=== PATIENT | female | born 1950 | race Caucasian/White ===

== ENCOUNTER 2018-05-16 10:36 | Day surgery (SDC) | payer MEDICARE, OTHER ==
[2018-05-14 14:45] VITALS: BP 147/76
[2018-05-14 15:13] LABS: BASOPHILS # (AUTO) 0.03 x10^3/uL (0-0.1); BASOPHILS % (AUTO) 1 % (0-1); EOSINOPHILS # (AUTO) 0.06 x10^3/uL (0-0.4); EOSINOPHILS % (AUTO) 1 % (1-7); LYMPHOCYTES # (AUTO) 0.69 x10^3/uL (1-3.4); LYMPHOCYTES % (AUTO) 12 % (22-44); MD NO; MEAN CORPUSCULAR HEMOGLOBIN 20.1 pg (27.0-34.8); MEAN CORPUSCULAR HGB CONC 31.2 g/dL (32.4-35.8); MEAN CORPUSCULAR VOLUME 64.6 fL (80-100); MEAN PLATELET VOLUME 8.6 fL (7.4-10.4); MONOCYTES # (AUTO) 0.34 x10^3/uL (0.2-0.8); MONOCYTES % (AUTO) 6 % (2-9); NEUTROPHILS % (AUTO) 81 % (42-75); PLATELET COUNT 199 x10^3/uL (130-400); RED BLOOD COUNT 5.79 x10^6/uL (3.82-5.3); RED CELL DISTRIBUTION WIDTH 16.4 % (9.6-15.2)
[2018-05-14 15:23] LABS: ANION GAP 6 mmol/L (5-15); CALCIUM 8.7 mg/dL (8.5-10.1); CHLORIDE 111 mmol/L (98-107); CREATININE 1.01 mg/dL (0.55-1.02)
[2018-05-14 15:26] LABS: INTERNATIONAL NORMALIZED RATIO 1.07 (0.93-1.1); PROTHROMBIN TIME 11.3 Seconds (9.6-11.5)
[~2018-05-16] VITALS: Ht 162.6 cm; Wt 90.9 kg
[~2018-05-16 10:36] MED LIST: ALPR-475 PO; ALPR1TAB2 PO; AMIO200T42 PO; ARIP2TAB2 PO; ASPI-650 PO; AZIT500T5 PO; BUPR150T73 PO; CEFD300C37 PO; CHOL5000 PO; CLON1TAB PO; FLUO20CA19 PO; FURO-92 PO; FURO-93 PO; METH4TAB2 PO; METO-93 PO; OMEP40CA6 PO; SERT100T32 PO
[2018-05-16] MEDS ORDERED: SODIUM CHLORIDE 0.9% 1,000 ML IV SCH (11:34)
[2018-05-16] MEDS ORDERED: FENTANYL PF 100 MCG/2ML ONE (14:15)
[2018-05-16] MEDS ORDERED: MIDAZOLAM 1 MG/ML, 2ML ONE (14:15)
[2018-05-16] MEDS ORDERED: CEFAZOLIN 1,000 MG ONE ×2 (14:23→14:25)
[2018-05-16] MEDS ORDERED: LIDOCAINE 1%, 20ML ONE (14:25)
[2018-05-16] MEDS ORDERED: DEXAMETHASONE 4 MG/ML, 5ML ONE (14:35)
[2018-05-16] MEDS ORDERED: PROPOFOL 10 MG/ML, 20ML ONE (14:35)
[2018-05-16] MEDS ORDERED: ONDANSETRON 2MG/ML, 2ML ONE (14:35)
[2018-05-16] MEDS ORDERED: HOLD MEDICATION MC PRN (15:00)
[2018-05-16] MEDS ORDERED: OXYcodone 5 MG/5 ML ORAL.SOL UDC PO PRN (15:30)
[2018-05-16] MEDS ORDERED: FENTANYL PF 100 MCG/2ML IV PRN (15:30)
[2018-05-16] MEDS ORDERED: MORPHINE SULFATE 4 MG/ML, 1ML IVPush PRN (15:30)
[2018-05-16] MEDS ORDERED: PROMETHAZINE 12.5 MG SUPP PR PRN (15:30)
[2018-05-16] MEDS ORDERED: LABETALOL 5MG/ML, 20ML IV PRN (15:30)
[2018-05-16] MEDS ORDERED: ONDANSETRON ODT 8 MG PO PRN (15:30)
[2018-05-16] MEDS ORDERED: hydrALAzine 20 MG/ML, 1ML IV PRN (15:30)
[2018-05-16] MEDS ORDERED: HALOPERIDOL 5 MG/ML IV PRN (15:30)
[2018-05-16] MEDS ORDERED: DIAZEPAM 5 MG/ML, 2ML IVPush PRN (15:30)
[2018-05-16] MEDS ORDERED: MEPERIDINE/PF 25MG/0.5ML IVPush PRN (15:30)
[2018-05-16] MEDS ORDERED: ALBUTEROL SULFATE 2.5 MG/3 ML NPPB PRN (15:30)
[2018-05-16] MEDS ORDERED: ACETAMINOPHEN 325 MG TABLET PO PRN (15:30)
[2018-05-16] MEDS ORDERED: HYDROmorphone 2 MG/ML, 1ML IVPush PRN (15:30)
[2018-05-16] MEDS ORDERED: EPHEDRINE 50 MG/ML, 1ML IVPush PRN (15:30)
[2018-05-16] MEDS ORDERED: ONDANSETRON 2MG/ML, 2ML IV PRN (15:30)
[2018-05-16] MEDS ORDERED: MIDAZOLAM 1 MG/ML, 2ML IV PRN (15:30)
[2018-05-16] MEDS ORDERED: PROMETHAZINE 25 MG/ML, 1ML IV PRN (15:30)
[2018-05-16] MEDS ORDERED: ACETAMINOPHEN 650 MG/20.3 ML UDC ONE (15:59)
[2018-05-16] MEDS ORDERED: OXYcodone 5 MG/5 ML ORAL.SOL UDC ONE (16:00)
[2018-05-16] MEDS ORDERED: SODIUM CHLORIDE FLUSH 10ML SYR IVF SCH (21:00)
== END 2018-05-16 16:48 | disposition home or self-care (01) ==
LOC: CACL 10:36
PROVIDERS: ATTEND Internal Medicine Cardiovascular Disease
DX: Z45.02 Encounter for adjustment and management of automatic implantable cardiac defibrillator (principal); I42.1 Obstructive hypertrophic cardiomyopathy; I10 Essential (primary) hypertension; E78.5 Hyperlipidemia, unspecified; I47.2 Ventricular tachycardia; Z88.1 Allergy status to other antibiotic agents
CPT/HCPCS: 33263; 36415; 71046; 80048; 85025; 85610; 93005; C1721; J0690; J1100; J2250; J2405; J2704; J3010; J3490

== ENCOUNTER → 2018-06-13 | Outpatient (CLI) | payer MEDICARE, OTHER | END | disposition home or self-care (01) | LOC: CFH 12:43 → MERGE 13:00 | PROVIDERS: ATTEND Internal Medicine Cardiovascular Disease | DX: I08.0 Rheumatic disorders of both mitral and aortic valves (principal); I42.9 Cardiomyopathy, unspecified | CPT/HCPCS: 93306 ==

== ENCOUNTER → 2019-05-30 | Outpatient (CLI) | payer MEDICARE, OTHER ==
[~2019-05-30] MED LIST changes: -ALPR-475 PO; +ALPR0.5T7 PO; +AZIT500T10 PO; -AZIT500T5 PO; +OMEP40CA42 PO; -OMEP40CA6 PO
== END | disposition home or self-care (01) ==
LOC: CFH 13:01
PROVIDERS: ATTEND Family Medicine
DX: R22.1 Localized swelling, mass and lump, neck (principal)
CPT/HCPCS: 76536

== ENCOUNTER 2019-06-03 13:37 | Outpatient (CLI) | payer MEDICARE, OTHER | END 2019-06-03 23:59 | disposition home or self-care (01) | LOC: CFH 13:37 | PROVIDERS: ATTEND Internal Medicine Cardiovascular Disease | DX: I08.3 Combined rheumatic disorders of mitral, aortic and tricuspid valves (principal) | CPT/HCPCS: 93306 ==

== ENCOUNTER 2020-07-14 18:48 | Emergency (ER) | payer MEDICARE, OTHER ==
[~2020-07-14] VITALS: Ht 162.6 cm; Wt 82.0 kg
[~2020-07-14 18:48] MED LIST changes: -ASPI-650 PO; +ASPI325T20 PO
--- NOTE | 2020-07-14 19:13 | NUR ---
NIL X 1
--- NOTE | 2020-07-14 19:27 | NUR ---
FIRST CONTACT WITH PT. CC OF LUQ AND FLANK MOVING TO LLQ PAIN 09/09. PT STATES "I THINK I HAVE EITHER A UTI OR A KIDNEY STONE, THIS FEELS SIMILAR TO MY LAST KIDEY STONE". PT REQUESTING SOMETHING FOR PAIN.
[2020-07-14] MEDS ORDERED: ONDANSETRON 2MG/ML, 2ML IVPush ONE (20:00)
[2020-07-14] MEDS ORDERED: KETOROLAC 30 MG/1 ML IVPush ONE (20:00)
[2020-07-14] MEDS ORDERED: MORPHINE SULFATE 4 MG/ML, 1ML IVPush PRN (20:00)
[2020-07-14] MEDS ORDERED: KETOROLAC 30 MG/1 ML ONE (20:06)
[2020-07-14] MEDS ORDERED: ONDANSETRON 2MG/ML, 2ML ONE (20:06)
[2020-07-14] MEDS ORDERED: MORPHINE SULFATE 4 MG/ML, 1ML ONE (20:07)
[2020-07-14 20:18] LABS: BASOPHILS % (AUTO) 1 % (0-1); EOSINOPHILS % (AUTO) 0 % (1-7); LYMPHOCYTES % (AUTO) 4 % (22-44); MEAN CORPUSCULAR HEMOGLOBIN 20.3 pg (27.0-34.8); MEAN CORPUSCULAR HGB CONC 31.7 g/dL (32.4-35.8); MEAN PLATELET VOLUME 8.4 fL (7.4-10.4); MONOCYTES % (AUTO) 5 % (2-9); NEUTROPHILS % (AUTO) 90 % (42-75); PLATELET COUNT 228 x10^3/uL (130-400); RED BLOOD COUNT 6.04 x10^6/uL (3.82-5.3); RED CELL DISTRIBUTION WIDTH 15.8 % (9.6-15.2)
[2020-07-14 20:25] LABS: ALANINE AMINOTRANSFERASE 79 U/L (12-78); ALBUMIN 4.4 g/dL (3.4-5.0); ANION GAP 7 mmol/L (5-15); CALCIUM 9.2 mg/dL (8.5-10.1); CHLORIDE 101 mmol/L (98-107); CREATININE 1.24 mg/dL (0.55-1.02)
[2020-07-14 20:27] LABS: ALKALINE PHOSPHATASE 68 U/L (45-117); BILIRUBIN,TOTAL 0.9 mg/dL (0.2-1.0); TOTAL PROTEIN 7.8 g/dL (6.4-8.2)
[2020-07-14 20:39] LABS: MD MORPH REVIEW ONLY
[2020-07-14 20:40] LABS: ANISOCYTOSIS 1+; MICROCYTOSIS 2+; OVALOCYTES 2+
[2020-07-14 20:40] LABS: MICROSCOPIC AUTO
[2020-07-14 20:41] LABS: <PLATELET ESTIMATE> ADEQUATE; <PLT MORPHOLOGY> NORMAL PLT MORPH; SCHISTOCYTES 1+
[2020-07-14 20:42] LABS: HYPOCHROMIA 2+
--- NOTE | 2020-07-14 20:45 | NUR ---
PT WALKED TO RESTROOM,ONLY ABL TO VOID SMALL AMOUNT. UA SENT TO LAB
[2020-07-14 21:22] VITALS: BP 119/60
[2020-07-14] MEDS ORDERED: HYDROcodone/APAP 10/325 MG TABLET ONE (21:26)
[2020-07-14] MEDS ORDERED: HYDROcodone/APAP 5/325 TABLET ONE (21:29)
[2020-07-14] MEDS ORDERED: HYDROcodone/APAP 5/325 TABLET PO ONE (21:30)
--- NOTE | 2020-07-14 21:35 | NUR ---
Patient given discharge instructions and they have confirmed that they understand the instructions. Patient ambulatory with steady gait.
== END 2020-07-14 21:52 | disposition home or self-care (01) ==
LOC: ED 19:18
DX: N13.2 Hydronephrosis with renal and ureteral calculous obstruction (principal); I10 Essential (primary) hypertension; Z88.1 Allergy status to other antibiotic agents
CPT/HCPCS: 36415; 74176; 80053; 81001; 85025; 87086; 96374; 96375; 99284; J1885; J2270; J2405